=== PATIENT | female | born 1995 | race Caucasian/White ===

== ENCOUNTER 2017-10-09 10:13 | Inpatient (IN) | payer BC ==
--- NOTE | 2017-10-11 14:20 | PREOPHP ---
Date of Admission: 10/09/2017 History Of Present Illness: Ms. Emerson is a 22-year-old single female, 1, para 0, a t 40+ weeks gestation. She has been followed by me during this without complications other than conception while taking OCs, mild anemia, and positive beta strep carriage. She is now at 40+ weeks gestation and is scheduled for elective induction of labor secondary to post-date and favorable cervix. Past Medical History: Please see record. Family History: Please see record. Review of Systems: She reports no recent cough, cold, fever, or chills. No recent nausea, vomiting. She denies any allen ast lumps or knots. She denies recurring vaginal or bladder symptoms. She denies any bowel issues. Physical Examination: General: Reveals pleasant female, in no apparent distress. Neck: Supple without adenopathy or thyromegaly. Lungs: Clear. Cardiac: Regular rate and rhythm without murmurs. Breasts: Not examined. Abdomen: A 37 cm fundal height with estimated weight between 7.5 and 8.5 pounds. Pelvic: Cervix noted to be 2 cm dilated, perhaps 70% effaced in mid position at -1 to -2 station. Extremities: Trace lower extremity edema. Impression: 1.A 40+ week . 2.Favorable cervix. 3.Beta strep carriage. Plan: She will be admitted, treated with IV penicillin for prophylaxis and labor will be induced. XIAO/MAIRA Voice ID: [id number]
[2017-10-13] MEDS ORDERED: PENICILLIN G POT 5 MU/100 ML BAG IV ONE (07:13)
[2017-10-13] MEDS ORDERED: OXYTOCIN/LR 20 UNIT/1,000 ML BAG IV ONE (07:13)
[2017-10-13] MEDS ORDERED: Ringers Lactate 1,000 ML IV ONE (07:13)
[2017-10-13] MEDS ORDERED: PENICILLIN 5 MU in NA CHLORIDE 0.9% 100 ML IV ONE (07:30)
[2017-10-13] MEDS ORDERED: Ringers Lactate 1,000 ML IV PRN (07:43)
[2017-10-13] MEDS ORDERED: BUTORPHANOL 1 MG/ML INJ IV PRN (07:47)
[2017-10-13] MEDS ORDERED: PROMETHAZINE 25 MG/ML VIAL IV PRN (07:47)
[2017-10-13] MEDS ORDERED: OXYTOCIN/LR 20 UNIT/1,000 ML BAG IV SCH ×2 (08:00→17:00)
[2017-10-13] MEDS ORDERED: Ringers Lactate 1,000 ML IV SCH (08:00)
[2017-10-13 08:07] LABS: RPR Titer ND
[2017-10-13 08:12] VITALS: BMI 31.2
[2017-10-13 08:13] LABS: Urine Appearance CLEAR; Urine Bilirubin NEGATIVE (NEG); Urine Blood NEGATIVE (NEG); Urine Color YELLOW; Urine Glucose NEGATIVE (NEG); Urine Protein NEGATIVE (NEG); Urine Urobilinogen 0.2 mg/dL (0.2-1.0)
[2017-10-13 08:15] LABS: Absolute Lymphocytes (CBC) 1.3 K/uL (0.7-4.9); Absolute Monocytes 0.7 K/uL (0.1-1.3); Absolute Neutrophil 6.7 K/uL (1.8-8.0); Basophils % 0.3 % (0-1.3); Eosinophils % 0.6 % (0-4.4); Hematocrit 39.4 % (36.0-45.0); Lymphocytes % 14.8 % (15.3-44.8); MCH 31.8 pg (27.0-35.0); MCV 92.6 fL (80-100); MPV 9.5 fL (7.6-11.3); Monocytes % 7.9 % (3.3-12.3); RBC Red Blood Cell Count 4.26 M/uL (3.86-4.86)
[2017-10-13 08:18] LABS: Urine Microscopic Reflex NO UMIC
[2017-10-13] MEDS ORDERED: CARBOPROST TROME 250 MCG/ML IM ONE (09:51)
[2017-10-13] MEDS ORDERED: METHYLERGONOVINE 0.2MG/ML AMP IM ONE (09:51)
[2017-10-13] MEDS ORDERED: BUPIVACAINE 0.25% PF 10 ML VIAL SQ PRN (10:41)
[2017-10-13] MEDS ORDERED: FENTANYL/BUPIVACAINE/NS/PF 200 MCG/100 ML BAG EP PRN (10:43)
[2017-10-13] MEDS ORDERED: PENICILLIN 2.5 MU in NA CHLORIDE 0.9% 100 ML IV SCH (11:15)
[2017-10-13] MEDS ORDERED: FENTANYL CITR 100 MCG/2 ML IV ONE (11:30)
[2017-10-13] MEDS ORDERED: FENTANYL CITR 100 MCG/2 ML ONE (11:39)
--- NOTE | 2017-10-13 12:59 | P.PN ---
Date of Service: 10/13/17 Cx 7-8cm, vtx at 0station, occasional variable decell, will watch, position, 02 as necessary.
[2017-10-13] MEDS ORDERED: METHYLERGONOVINE 0.2MG/ML AMP IM PRN (16:03)
[2017-10-13] MEDS ORDERED: METHYLERGONOVINE 0.2 MG TAB PO PRN (16:03)
[2017-10-13] MEDS ORDERED: ACETAMINOPHEN 500 MG TAB PO PRN (16:03)
--- NOTE | 2017-10-13 16:06 | P.BOP ---
Preoperative diagnosis: 40+ week Postoperative diagnosis: Delivery viable male Primary procedure: SCVD viable male Secondary procedure: Repair midline vaginal laceration Estimated blood loss: Less than 400ml Anesthesia: epidural Complications: None Transferred to: Other ([id number])
[2017-10-13] MEDS: IBUPROFEN 200 MG TAB PO PRN (21:57)
[2017-10-13 23:56] LABS: RPR (Rapid Plasma Reagin) NON-REACT (NON-REACT)
[2017-10-14] MEDS: IBUPROFEN 200 MG TAB PO PRN (07:25)
[2017-10-14 18:21] VITALS: BP 125/71; TEMP 96
[2017-10-15 03:55] LABS: HBsAG Nonreactive (Nonreactive)
--- NOTE | 2017-10-17 09:17 | DS ---
Date of Discharge: 10/14/2017 Final Hospital Discharge Diagnosis: 40+ week , delivered. Complications: None. Procedures: Artificial rupture of membranes Pitocin induction of labor. Spontaneous controlled vagi nal delivery of viable male infant. Repair of second-degree vaginal laceration. Hospital Course: The patient is a 22-year-old female, 1, para 0, at 40+ weeks gest ation, admitted for induction of labor secondary to prolonged with favorable cervix. She h ad an uneventful labor and delivery of an 8 pounds 13 ounce male , 9 and 9, with epidural anesthesia. She was prophylaxed for beta strep carriage with 3 doses of penicillin during her labor course. She was dismissed on the first day, ambulatory on a select diet with routine pos t vaginal delivery activity restrictions to be seen back in my office in 6 weeks. She was to continu e taking her iron and vitamins. Lab work obtained during this hospital stay included an adm ission hemoglobin and hematocrit of 13.5 and 39.4, dismissal hematocrit 32.3. She is Rh positive blo od type and is rubella immune. She was dismissed to take ibuprofen or Tylenol for pain relief and to continue on her iron and vitamins. XIAO/MAIRA Voice ID: [id number] Report ID: [id number]
--- NOTE | 2017-10-17 09:41 | OP ---
Surgeon: Fausto Melvin MD Ms. Emerson is 22-year-old female 1, para 0, at 40+ weeks gestation, admitted for ind uction of labor secondary to prolonged with favorable cervix. She was noted to be approxim ately 2 cm dilated on admission. After initial dose of penicillin 5 million units was given for beta strep prophylaxis. Rupture of membranes was performed and Pitocin and an induction of labor was beg un. She had a first stage of labor of 6 hours and 15 minute, second stage of labor of 1 hour and 31 minutes. She delivered by spontaneous controlled vaginal delivery an 8 pounds 13 ounce male , 9 and 9. Posterior arm was delivered and with gentle downward traction the infant was delivere d. After brief delay, cord clamping was accomplished, it was cut. Infant placed on mother's upper a bdomen. Cord blood was obtained. The placenta was spontaneously expelled and appeared to be intact. Intrauterine examination revealed no retained placental products. The patient suffered a second-de gree posterior vaginal laceration, which was repaired in the usual fashion with 3-0 Vicryl suture. T he patient had received 1 mg of Stadol, 12.5 mg of Phenergan IV x1, and Afrin prior to placement of e pidural catheter, which provided excellent relief. Estimated total blood loss at the time delivery w as approximately 400 cc. Mild atony. Responded to vigorous fundal massage and IV dilute solution of Pitocin. XIAO/MAIRA Voice ID: [id number] Report ID: [id number]
== END 2017-10-14 18:15 | disposition home or self-care (01) | DRG 775 ==
LOC: 2ND-WC 10-13 07:12
PROVIDERS: ADMIT Specialist; ATTEND Specialist
PROC: 10E0XZZ Delivery of Products of Conception, External Approach (ICD-10-PCS; principal; 2017-10-13)
PROC: 0KQM0ZZ Repair Perineum Muscle, Open Approach (ICD-10-PCS; 2017-10-13)
PROC: 10907ZC Drainage of Amniotic Fluid, Therapeutic from Products of Conception, Via Natural or Artificial Opening (ICD-10-PCS; 2017-10-13)
PROC: 3E033VJ Introduction of Other Hormone into Peripheral Vein, Percutaneous Approach (ICD-10-PCS; 2017-10-13)
DX: O48.0 Post-term pregnancy (principal); O70.1 Second degree perineal laceration during delivery; O75.89 Other specified complications of labor and delivery; O99.824 Streptococcus B carrier state complicating childbirth; Z3A.40 40 weeks gestation of pregnancy; Z37.0 Single live birth; Z88.5 Allergy status to narcotic agent
CPT/HCPCS: 36415; 81003; 85014; 85025; 86592; 86901; 87340; J0595; J2210; J2550; J2590; J3010